=== PATIENT | female | born 1995 | race Caucasian/White ===

== ENCOUNTER 2018-08-07 22:32 | Emergency (ER) | payer SELFPAY, OTHER | END 2018-08-07 23:04 | disposition home or self-care (01) | LOC: ER 22:32 ==

== ENCOUNTER → 2018-12-25 | Outpatient (CLI) | payer SELFPAY ==
[~2018-12-25] MED LIST: CATHETER FLUSH 10 ML SYR IV PRN; CEPH500T PO; HOLD METFORMIN - RECEIVED CONTRAST 20 ML VIAL IV SCH; IOHEXOL 350 MG/ML 150 ML (OMNIPAQUE 350) VIAL IV ONE; NS 100 ML (IVPB) BAG IV ONE; TRAM50TA2 PO
--- NOTE | 2018-12-25 12:13 | Diagnostic Imaging Report ---
PROCEDURE: CT angiography of the chest with contrast. TECHNIQUE: Multiple contiguous axial images were obtained through the chest after uneventful bolus administration of intravenous contrast. 2D reconstructed CTA MIP acquisitions were also performed. Auto Exposure Controls were utilized during the CT exam to meet ALARA standards for radiation dose reduction. INDICATION: Lightheadedness as well as high blood pressure. No prior studies are available for comparison. Evaluation of pulmonary arterial system is without thromboembolism. No filling defects are seen within central, lobar or segmental branches. The thoracic aorta is of normal caliber. No dissection is seen. No pericardial or pleural fluid is identified. Pulmonary parenchymal evaluation demonstrates a 5 mm subpleural nodule in the posterior right upper lobe, image 29. Minimal nodularity along the major fissure on the left is seen. No infiltrates are identified. Upper abdomen does show some generalized low density throughout the liver consistent with hepatic steatosis. Impression: 1. No evidence of pulmonary embolism or thoracic aortic dissection. 2. Hepatic steatosis. Report was called to Norma Armendariz nurse practitioner by marcos at 12:12 p.m. Dictated by: Dictated on workstation # [id number]
== END ==
LOC: RAD 11:18
PROVIDERS: ATTEND Nurse Practitioner Family
DX: K76.0 Fatty (change of) liver, not elsewhere classified (principal); R06.02 Shortness of breath; R42 Dizziness and giddiness
CPT/HCPCS: 71275

== ENCOUNTER → 2019-04-12 | Outpatient (CLI) | payer OTHER ==
[~2019-04-12] MED LIST changes: -CATHETER FLUSH 10 ML SYR IV PRN; -HOLD METFORMIN - RECEIVED CONTRAST 20 ML VIAL IV SCH; -IOHEXOL 350 MG/ML 150 ML (OMNIPAQUE 350) VIAL IV ONE; -NS 100 ML (IVPB) BAG IV ONE
--- NOTE | 2019-04-12 15:21 | Diagnostic Imaging Report ---
INDICATION: Left groin lump. TECHNIQUE: Sonographic interrogation of the lump in the region of the left groin was performed. There is a normal-appearing lymph node at this location measuring 0.9 x 1.4 x 0.6 cm. No other masses are seen. IMPRESSION: Left groin lymph node. No other abnormality is seen. Dictated by: Dictated on workstation # [id number]
== END ==
LOC: RAD 10:41
PROVIDERS: ATTEND Internal Medicine Hematology & Oncology
DX: D72.829 Elevated white blood cell count, unspecified (principal); R19.04 Left lower quadrant abdominal swelling, mass and lump; R22.9 Localized swelling, mass and lump, unspecified
CPT/HCPCS: 76881

== ENCOUNTER → 2019-04-12 | Outpatient (CLI) | payer OTHER ==
--- NOTE | 2019-04-12 15:20 | Diagnostic Imaging Report ---
INDICATION: Left breast lump. FINDINGS: Sonographic interrogation of the area of lump at the 12 o'clock location of the left breast was performed. No sonographic abnormality is seen. No solid or cystic mass is detected. IMPRESSION: No sonographic abnormality is identified. Continued close clinical and self breast exams are recommended to confirm stability of the palpable lump in the left breast. ACR BI-RADS Category 2: Benign findings. Dictated by: Dictated on workstation # [id number]
== END ==
LOC: RAD 10:33
PROVIDERS: ATTEND Internal Medicine Hematology & Oncology
DX: N63.20 Unspecified lump in the left breast, unspecified quadrant (principal); D72.829 Elevated white blood cell count, unspecified
CPT/HCPCS: 76642

== ENCOUNTER 2019-04-16 08:57 | Outpatient (RCR) | payer OTHER ==
[2019-03-31 10:22] LABS: BASOPHILS % (AUTO) 0 % (0-10); EOSINOPHILS # (AUTO) 0.2 10^3/uL (0.0-0.3); EOSINOPHILS % (AUTO) 2 % (0-10); HEMATOCRIT 39 % (35-52); HEMOGLOBIN 12.5 G/DL (11.5-16.0); LYMPHOCYTES # (AUTO) 2.8 X 10^3 (1.0-4.0); LYMPHOCYTES % (AUTO) 22 % (12-44); MEAN CORPUSCULAR HEMOGLOBIN 26 PG (25-34); MEAN CORPUSCULAR HGB CONC 32 G/DL (32-36); MEAN CORPUSCULAR VOLUME 80 FL (80-99); MEAN PLATELET VOLUME 9.9 FL (7.4-10.4); MONOCYTES # (AUTO) 0.7 X 10^3 (0.0-1.0); MONOCYTES % (AUTO) 6 % (0-12); NEUTROPHILS # (AUTO) 9.2 X 10^3 (1.8-7.8); NEUTROPHILS % (AUTO) 71 % (42-75); PLATELET COUNT 539 10^3/uL (130-400); WHITE BLOOD COUNT 12.9 10^3/uL (4.3-11.0)
[2019-04-01 08:22] LABS: HEPATITIS C ANTIBODY C Non-Reactive (Non-Reactive)
[2019-04-16 09:18] LABS: BASOPHILS % (AUTO) 0 % (0-10); EOSINOPHILS # (AUTO) 0.3 10^3/uL (0.0-0.3); EOSINOPHILS % (AUTO) 2 % (0-10); HEMATOCRIT 39 % (35-52); HEMOGLOBIN 12.3 G/DL (11.5-16.0); LYMPHOCYTES # (AUTO) 3.9 X 10^3 (1.0-4.0); LYMPHOCYTES % (AUTO) 32 % (12-44); MEAN CORPUSCULAR HEMOGLOBIN 26 PG (25-34); MEAN CORPUSCULAR HGB CONC 32 G/DL (32-36); MEAN CORPUSCULAR VOLUME 81 FL (80-99); MEAN PLATELET VOLUME 9.7 FL (7.4-10.4); MONOCYTES # (AUTO) 0.8 X 10^3 (0.0-1.0); MONOCYTES % (AUTO) 7 % (0-12); NEUTROPHILS # (AUTO) 7.3 X 10^3 (1.8-7.8); NEUTROPHILS % (AUTO) 59 % (42-75); PLATELET COUNT 556 10^3/uL (130-400); RED CELL DISTRIBUTION WIDTH 14.9 % (10.0-14.5); WHITE BLOOD COUNT 12.2 10^3/uL (4.3-11.0)
== END 2019-06-29 | disposition home or self-care (01) ==
LOC: ONC 08:57
PROVIDERS: ATTEND Internal Medicine Hematology & Oncology
DX: D72.820 Lymphocytosis (symptomatic) (principal); D72.821 Monocytosis (symptomatic); D47.3 Essential (hemorrhagic) thrombocythemia; R22.9 Localized swelling, mass and lump, unspecified; I10 Essential (primary) hypertension; K58.9 Irritable bowel syndrome, unspecified; E28.2 Polycystic ovarian syndrome; F32.9 Major depressive disorder, single episode, unspecified
CPT/HCPCS: 36415; 80074; 81206; 81270; 81402; 82728; 83540; 85025; 86703; 88184; 88185; 99214